=== PATIENT | female | born 1950 | race Caucasian/White ===

== ENCOUNTER → 2016-07-29 | Outpatient (CLI) | payer OTHER ==
[~2016-07-29] MED LIST: ASPIRIN CHEWABL81 MG PO; CELEXA20 MG PO; CLARITIN 10MG T10 MG PO; DITROPAN 5 MG TA5 MG PO; ELIQUIS5 MG PO; LEVOTHYROXINE100 MCG PO; LOVASTATIN20 MG PO; MULTAQ 400 MG400 MG PO; SOTALOL80 MG PO; TYLENOL 500 MG500 MG PO; VITAMIN D1000 UNIT PO
[2016-07-29 11:30] LABS: HEMOGLOBIN 13.7 gm/dl (12.3-15.3); RED BLOOD COUNT 4.57 M/UL (4.00-5.10); WHITE BLOOD COUNT 5.3 K/UL (4.5-11.0)
[2016-07-29 11:43] LABS: BUN/CREATININE RATIO 24 (0-10)
== END ==
LOC: LAB 10:53
PROVIDERS: Internal Medicine Cardiovascular Disease
DX: I48.92 Unspecified atrial flutter (principal); I35.9 Nonrheumatic aortic valve disorder, unspecified; I10 Essential (primary) hypertension; Z95.1 Presence of aortocoronary bypass graft; M19.012 Primary osteoarthritis, left shoulder
CPT/HCPCS: 36415; 71020; 80048; 85025

== ENCOUNTER 2016-07-30 09:52 | Outpatient (CLI) | payer OTHER ==
[~2016-07-30] VITALS: Ht 167.6 cm; Wt 131.5 kg
[2016-07-30] MEDS ORDERED: ELIQUIS5 MG PO (11:18)
[2016-07-30] MEDS ORDERED: ASPIRIN CHEWABL81 MG PO (11:18)
[2016-07-30] MEDS ORDERED: CLARITIN 10MG T10 MG PO (11:19)
[2016-07-30] MEDS ORDERED: LEVOTHYROXINE100 MCG PO (11:19)
[2016-07-30] MEDS ORDERED: LOVASTATIN20 MG PO (11:20)
[2016-07-30] MEDS ORDERED: SOTALOL80 MG PO (11:20)
[2016-07-30] MEDS ORDERED: VITAMIN D1000 UNIT PO (11:21)
[2016-07-30] MEDS ORDERED: DITROPAN 5 MG TA5 MG PO (11:21)
[2016-10-17] MEDS ORDERED: MULTAQ 400 MG400 MG PO (07:54)
[2016-10-17] MEDS ORDERED: CELEXA20 MG PO (07:56)
[2016-10-17] MEDS ORDERED: TYLENOL 500 MG500 MG PO (08:14)
== END 2016-07-31 10:20 | disposition home or self-care (01) ==
LOC: CATH 09:52 → PROG CARE 14:14 → CATH 07-31 10:20
DX: I48.92 Unspecified atrial flutter (principal); I49.5 Sick sinus syndrome; I10 Essential (primary) hypertension; I35.9 Nonrheumatic aortic valve disorder, unspecified; Z95.2 Presence of prosthetic heart valve; E78.5 Hyperlipidemia, unspecified; Z79.02 Long term (current) use of antithrombotics/antiplatelets; Z79.899 Other long term (current) drug therapy; Z88.8 Allergy status to other drugs, medicaments and biological substances; Z79.82 Long term (current) use of aspirin; M17.0 Bilateral primary osteoarthritis of knee; M16.10 Unilateral primary osteoarthritis, unspecified hip; Z85.828 Personal history of other malignant neoplasm of skin; Z85.850 Personal history of malignant neoplasm of thyroid
CPT/HCPCS: 93005; 93609; 93621; C1730; C1766; J1644; J2250; J3010; J7040

== ENCOUNTER → 2016-09-11 | Outpatient (CLI) | payer OTHER | LOC: HEART CORB 10:30 | DX: I35.9 Nonrheumatic aortic valve disorder, unspecified (principal); I48.92 Unspecified atrial flutter; Z95.2 Presence of prosthetic heart valve | CPT/HCPCS: 93306 ==

== ENCOUNTER → 2021-01-04 | Outpatient (CLI) | payer MEDICARE | LOC: HEART CORB 14:00 | DX: I08.1 Rheumatic disorders of both mitral and tricuspid valves (principal); I27.20 Pulmonary hypertension, unspecified; R01.1 Cardiac murmur, unspecified; Z95.2 Presence of prosthetic heart valve | CPT/HCPCS: 93306 ==